=== PATIENT | female | born 1985 | race Caucasian/White ===

== ENCOUNTER → 2017-01-26 | Outpatient (CLI) | payer OTHER | LOC: FIMAGING 14:22 | PROVIDERS: ATTEND Advanced Practice Midwife | DX: Z34.01 Encounter for supervision of normal first pregnancy, first trimester (principal); Z3A.09 9 weeks gestation of pregnancy ==

== ENCOUNTER → 2017-04-07 | Outpatient (CLI) | payer OTHER | LOC: FLAB 07:25 | PROVIDERS: ATTEND Advanced Practice Midwife | DX: O35.8XX0 Maternal care for other (suspected) fetal abnormality and damage, not applicable or unspecified (principal); Z3A.19 19 weeks gestation of pregnancy ==

== ENCOUNTER → 2017-06-20 | Outpatient (CLI) | payer OTHER | LOC: FIMAGING 14:27 | PROVIDERS: ATTEND Advanced Practice Midwife | DX: O44.43 Low lying placenta NOS or without hemorrhage, third trimester (principal); Z3A.30 30 weeks gestation of pregnancy ==